=== PATIENT | female | born 1940 | race Caucasian/White ===

== ENCOUNTER 2023-02-13 04:29 | Inpatient (IN) | payer BC ==
[~2023-02-13] VITALS: Ht 162.6 cm; Wt 49.0 kg
[2023-02-13 04:30] VITALS: BP_SYST 136; PULSE 89; RESP 24; TEMP 98.3; O2SAT 93
[2023-02-13] MEDS ORDERED: iohexoL 350 mgI/mL, 100 ML INFUS..BTL IV ONE (04:53)
[2023-02-13] MEDS ORDERED: ASPIRIN 81 MG TAB.CHEW PO ONE (05:15)
[2023-02-13] MEDS ORDERED: ASPIRIN 300 MG/SUPP.RECT SUPP RC ONE ×2 (05:30→06:15)
[2023-02-13 05:32] LABS: PROTHROMBIN TIME 10.1 SECS (9.5-12.5)
[2023-02-13 05:34] LABS: ANION GAP 7 (5-15); CALCIUM 9.6 mg/dL (8.4-11.0); CARBON DIOXIDE 29 mmol/L (23-29); CHLORIDE 98 mmol/L (98-107); CREATININE 0.89 mg/dL (0.55-1.30); GLUCOSE 231 mg/dL (74-106); POTASSIUM 4.6 mmol/L (3.5-5.1); SODIUM SERUM 134 mmol/L (136-145); UREA NITROGEN, BLOOD 17 mg/dL (8-21)
[2023-02-13 05:38] LABS: BASOPHILS % (AUTO) 0.2 % (0.0-2.0); EOSINOPHILS # (AUTO) 0.3 K/uL (0.0-0.4); EOSINOPHILS % (AUTO) 5.7 % (0.0-4.0); HEMOGLOBIN 11.2 g/dL (12.0-16.0); LYMPHOCYTES # (AUTO) 1.9 K/uL (1.0-5.5); LYMPHOCYTES % (AUTO) 41.3 % (20.5-51.5); MEAN CORPUSCULAR HEMOGLOBIN 30 pg (27-31); MEAN CORPUSCULAR HGB CONC 33 % (32-36); MEAN CORPUSCULAR VOLUME 90 fL (79.0-98.0); MONOCYTES # (AUTO) 0.2 K/uL (0.0-1.0); MONOCYTES % (AUTO) 4.4 % (1.7-9.3); NEUTROPHILS # (AUTO) 2.3 K/uL (1.8-7.7); NEUTROPHILS % (AUTO) 48.4 % (40.0-70.0); PLATELET COUNT (AUTO) 208 K/uL (130-430); RED BLOOD CELL COUNT(AUTO) 3.78 MIL/uL (4.2-6.2); RED CELL DISTRIBUTION WIDTH 14.1 % (9.0-15.0); WHITE BLOOD COUNT (AUTO) 4.7 K/uL (4.8-10.8)
[2023-02-13 05:41] LABS: ALANINE AMINOTRANSFERASE 44 U/L (12-78); ALBUMIN 3.4 g/dL (3.4-4.8); ASPARTATE AMINOTRANSFERASE 28 U/L (10-37); CHOLESTEROL 175 mg/dL (<200); HDL CHOLESTEROL 70 mg/dL (>55); TOTAL BILIRUBIN 0.4 mg/dL (0.0-1.0); TOTAL PROTEIN, SERUM 6.2 g/dL (6.4-8.3); TRIGLYCERIDES 180 mg/dL (30-150)
[2023-02-13 05:58] LABS: BILIRUBIN,URINE NEGATIVE (NEGATIVE); BLOOD, URINE NEGATIVE (NEGATIVE); CLARITY/URINE CLEAR (CLEAR); COLOR,URINE YELLOW (YELLOW); GLUCOSE,URINE NEGATIVE (NEGATIVE); KETONES,URINE NEGATIVE (NEGATIVE); LEUKOCYTE ESTERASE ,URINE NEGATIVE (NEGATIVE); NITRITE, URINE NEGATIVE (NEGATIVE); PH,URINE 7.5 (5.0-8.0); PROTEIN URINE NEGATIVE (NEGATIVE); UROBILINOGEN,URINE 0.2 (0.2-1.0)
[2023-02-13 06:14] LABS: BENZODIAZEPINE, URINE POSITIVE (NEG <=150)
[2023-02-13 06:16] LABS: BARBITURATE, URINE NEGATIVE (NEG <=200); CANNABINOID, URINE NEGATIVE (NEG <=50); COCAINE, URINE NEGATIVE (NEG <=150); METHAMPHETAMINES SCREEN,URINE NEGATIVE (NEG <=500); OPIATE, URINE NEGATIVE (NEG <=100); PHENCYCLIDINE SCREEN,URINE NEGATIVE (NEG <=25); UR TRICYCLIC ANTIDEPRESSANTS NEGATIVE (NEG <=300); URINE AMPHETAMINE NEGATIVE (NEG <=500); URINE METHADONE NEGATIVE (NEG <=200); URINE OXYCODONE SCREEN NEGATIVE (NEG <=100); URINE PROPOXYPHENE SCREEN NEGATIVE (NEG <=300)
[2023-02-13 06:39] LABS: HEMOGLOBIN A1C 8.54 % (<5.7)
[2023-02-13] MEDS ORDERED: HYDROcodone/ACETAMIN 5-325 MG TAB (NORCO/ VICODIN) PO PRN (09:45)
[2023-02-13] MEDS ORDERED: ONDANSETRON HCL 4 MG/2 ML VIAL IVP PRN (09:45)
[2023-02-13] MEDS ORDERED: HYDROcodone/ACETAMIN 10-325 MG TAB PO PRN (09:45)
[2023-02-13] MEDS ORDERED: TRAZ-250 PO (10:30)
[2023-02-13] MEDS ORDERED: MIRT-92 PO (10:30)
[2023-02-13] MEDS ORDERED: LORA-258 PO (10:30)
[2023-02-13] MEDS ORDERED: METF-381 PO (11:04)
[2023-02-13] MEDS ORDERED: LORA-258 (11:04)
[2023-02-13] MEDS ORDERED: METF-379 PO (11:04)
[2023-02-13] MEDS ORDERED: ESCI20TA38 PO (11:04)
[2023-02-13] MEDS ORDERED: ATOR10TA68 PO (11:04)
[2023-02-13] MEDS ORDERED: LEVO137T2 PO ×2 (11:04→17:45)
[2023-02-13] MEDS ORDERED: GLIP10TA11 PO (11:04)
[2023-02-13] MEDS ORDERED: NEU300 PO (11:08)
[2023-02-13] MEDS ORDERED: HYDR-500 PO (11:11)
[2023-02-13] MEDS ORDERED: HYDR-3698 PO (11:15)
[2023-02-13 12:30] VITALS: BP_SYST 113; PULSE 87; RESP 18; TEMP 99; O2SAT 98
[2023-02-13 13:54] VITALS: BP_SYST 113; PULSE 87; RESP 16; TEMP 99
[2023-02-13] MEDS: NACL 0.9% 1,000 ML IV SCH ×2 (15:00→22:04)
[2023-02-13] MEDS ORDERED: DEXTROSE 50% JECT 50 ML DISP.SYRIN IVP PRN (15:15)
[2023-02-13] MEDS ORDERED: GLUCOSE (DEXTROSE) ORAL GEL -Adults PO PRN (15:15)
[2023-02-13] MEDS ORDERED: ATORVASTATIN 20 MG TABLET PO ONE (15:30)
[2023-02-13] MEDS ORDERED: ZOLPIDEM TARTRATE 5 MG TABLET PO PRN (15:45)
[2023-02-13 16:32] VITALS: BP_SYST 109; PULSE 94; RESP 16; TEMP 99; O2SAT 100
[2023-02-13] MEDS ORDERED: MECLIZINE HCL 25 MG TABLET (ANITVERT) PO ONE (16:45)
[2023-02-13 20:00] VITALS: BP_SYST 113; PULSE 79; RESP 18; TEMP 98.2; O2SAT 97
[2023-02-13] MEDS: AZITHROMYCIN 500 MG in NS 250 ML IV SCH (21:27)
[2023-02-13] MEDS: cefTRIAXone 1 GM in D5W 50 ML IV SCH (21:27)
[2023-02-13] MEDS: MECLIZINE HCL 25 MG TABLET (ANITVERT) PO SCH (21:40)
[2023-02-13] MEDS: HYDROcodone/ACETAMIN 5-325 MG TAB (NORCO/ VICODIN) PO PRN (21:42)
[2023-02-14 00:29] VITALS: BP_SYST 97; PULSE 74; RESP 17; TEMP 97.6; O2SAT 95
[2023-02-14] MEDS: LEVOTHYROXINE SODIUM 0.137 MG TABLET PO SCH (06:06)
[2023-02-14 07:28] LABS: BASOPHILS % (AUTO) 0.2 % (0.0-2.0); EOSINOPHILS # (AUTO) 0.2 K/uL (0.0-0.4); EOSINOPHILS % (AUTO) 2.9 % (0.0-4.0); HEMATOCRIT 30.4 % (36-48); HEMOGLOBIN 10.1 g/dL (12.0-16.0); LYMPHOCYTES # (AUTO) 1.4 K/uL (1.0-5.5); LYMPHOCYTES % (AUTO) 25.6 % (20.5-51.5); MEAN CORPUSCULAR HEMOGLOBIN 30 pg (27-31); MEAN CORPUSCULAR HGB CONC 33 % (32-36); MEAN CORPUSCULAR VOLUME 90 fL (79.0-98.0); MONOCYTES # (AUTO) 0.2 K/uL (0.0-1.0); MONOCYTES % (AUTO) 3.7 % (1.7-9.3); NEUTROPHILS # (AUTO) 3.7 K/uL (1.8-7.7); NEUTROPHILS % (AUTO) 67.6 % (40.0-70.0); PLATELET COUNT (AUTO) 217 K/uL (130-430); RED BLOOD CELL COUNT(AUTO) 3.38 MIL/uL (4.2-6.2); RED CELL DISTRIBUTION WIDTH 14.4 % (9.0-15.0); WHITE BLOOD COUNT (AUTO) 5.5 K/uL (4.8-10.8)
[2023-02-14 07:50] LABS: ANION GAP 6 (5-15); CALCIUM 8.5 mg/dL (8.4-11.0); CARBON DIOXIDE 26 mmol/L (23-29); CHLORIDE 100 mmol/L (98-107); CREATININE 0.75 mg/dL (0.55-1.30); GLUCOSE 184 mg/dL (74-106); POTASSIUM 4.2 mmol/L (3.5-5.1); SODIUM SERUM 132 mmol/L (136-145); UREA NITROGEN, BLOOD 11 mg/dL (8-21)
[2023-02-14 08:00] VITALS: BP_SYST 115; PULSE 78; RESP 18; TEMP 98.4; O2SAT 96; O2SAT 97
[2023-02-14] MEDS: ASPIRIN 81 MG TAB.CHEW PO SCH (08:47)
[2023-02-14] MEDS: ATORVASTATIN 20 MG TABLET PO SCH (08:47)
[2023-02-14] MEDS: MECLIZINE HCL 25 MG TABLET (ANITVERT) PO SCH ×3 (08:48→21:25)
[2023-02-14 11:35] VITALS: BP_SYST 132; PULSE 85; RESP 17; TEMP 98.2; O2SAT 97
[2023-02-14] MEDS: NACL 0.9% 1,000 ML IV SCH ×2 (14:21→21:28)
[2023-02-14 16:06] VITALS: BP_SYST 127; PULSE 74; RESP 18; TEMP 97.9; O2SAT 98
[2023-02-14 19:00] VITALS: BP_SYST 137; PULSE 75; RESP 16; TEMP 97.8; O2SAT 96
[2023-02-14 20:00] VITALS: BP_SYST 137; PULSE 75; RESP 16; TEMP 97.8; O2SAT 96
[2023-02-14] MEDS: AZITHROMYCIN 500 MG in NS 250 ML IV SCH (21:24)
[2023-02-14] MEDS: cefTRIAXone 1 GM in D5W 50 ML IV SCH (21:25)
[2023-02-14] MEDS: HYDROcodone/ACETAMIN 5-325 MG TAB (NORCO/ VICODIN) PO PRN (21:27)
[2023-02-15 00:39] VITALS: BP_SYST 122; PULSE 80; RESP 18; TEMP 97.8; O2SAT 93
[2023-02-15 05:15] LABS: BASOPHILS % (AUTO) 0.2 % (0.0-2.0); EOSINOPHILS # (AUTO) 0.2 K/uL (0.0-0.4); EOSINOPHILS % (AUTO) 3.5 % (0.0-4.0); HEMATOCRIT 30.8 % (36-48); HEMOGLOBIN 10.2 g/dL (12.0-16.0); LYMPHOCYTES # (AUTO) 1.4 K/uL (1.0-5.5); LYMPHOCYTES % (AUTO) 29.3 % (20.5-51.5); MEAN CORPUSCULAR HEMOGLOBIN 30 pg (27-31); MEAN CORPUSCULAR HGB CONC 33 % (32-36); MEAN CORPUSCULAR VOLUME 89 fL (79.0-98.0); MONOCYTES # (AUTO) 0.2 K/uL (0.0-1.0); MONOCYTES % (AUTO) 4.5 % (1.7-9.3); NEUTROPHILS % (AUTO) 62.5 % (40.0-70.0); PLATELET COUNT (AUTO) 211 K/uL (130-430); RED BLOOD CELL COUNT(AUTO) 3.47 MIL/uL (4.2-6.2); WHITE BLOOD COUNT (AUTO) 4.8 K/uL (4.8-10.8)
[2023-02-15 05:23] LABS: ANION GAP 10 (5-15); CALCIUM 8.6 mg/dL (8.4-11.0); CARBON DIOXIDE 24 mmol/L (23-29); CHLORIDE 101 mmol/L (98-107); CREATININE 0.76 mg/dL (0.55-1.30); GLUCOSE 132 mg/dL (74-106); POTASSIUM 3.8 mmol/L (3.5-5.1); SODIUM SERUM 135 mmol/L (136-145); UREA NITROGEN, BLOOD 11 mg/dL (8-21)
[2023-02-15] MEDS: LEVOTHYROXINE SODIUM 0.137 MG TABLET PO SCH (06:01)
[2023-02-15 08:00] VITALS: BP_SYST 121; PULSE 78; RESP 17; TEMP 97.2; O2SAT 97
[2023-02-15] MEDS: ATORVASTATIN 20 MG TABLET PO SCH (09:29)
[2023-02-15] MEDS: MECLIZINE HCL 25 MG TABLET (ANITVERT) PO SCH ×3 (09:30→20:32)
[2023-02-15] MEDS: ASPIRIN 81 MG TAB.CHEW PO SCH (09:30)
[2023-02-15 12:00] VITALS: BP_SYST 113; PULSE 78; RESP 19; TEMP 97.5; O2SAT 97
[2023-02-15 16:00] VITALS: BP_SYST 113; PULSE 80; RESP 16; TEMP 97.3; O2SAT 98
[2023-02-15] MEDS: NACL 0.9% 1,000 ML IV SCH (18:55)
[2023-02-15 20:19] VITALS: BP_SYST 126; PULSE 79; RESP 18; TEMP 99.4; O2SAT 99
[2023-02-15] MEDS: AZITHROMYCIN 500 MG in NS 250 ML IV SCH (20:36)
[2023-02-15] MEDS: cefTRIAXone 1 GM in D5W 50 ML IV SCH (21:42)
[2023-02-15 23:42] VITALS: O2SAT 99
[2023-02-16 00:46] VITALS: BP_SYST 115; PULSE 75; RESP 16; TEMP 98.9; O2SAT 98
[2023-02-16 05:04] LABS: BASOPHILS % (AUTO) 0.1 % (0.0-2.0); EOSINOPHILS # (AUTO) 0.1 K/uL (0.0-0.4); EOSINOPHILS % (AUTO) 2.1 % (0.0-4.0); HEMATOCRIT 30.4 % (36-48); HEMOGLOBIN 10.1 g/dL (12.0-16.0); LYMPHOCYTES # (AUTO) 1.6 K/uL (1.0-5.5); LYMPHOCYTES % (AUTO) 26.4 % (20.5-51.5); MEAN CORPUSCULAR HEMOGLOBIN 30 pg (27-31); MEAN CORPUSCULAR HGB CONC 33 % (32-36); MEAN CORPUSCULAR VOLUME 89 fL (79.0-98.0); MONOCYTES # (AUTO) 0.3 K/uL (0.0-1.0); MONOCYTES % (AUTO) 4.4 % (1.7-9.3); NEUTROPHILS # (AUTO) 4.1 K/uL (1.8-7.7); PLATELET COUNT (AUTO) 206 K/uL (130-430); RED BLOOD CELL COUNT(AUTO) 3.42 MIL/uL (4.2-6.2); RED CELL DISTRIBUTION WIDTH 14.2 % (9.0-15.0); WHITE BLOOD COUNT (AUTO) 6.1 K/uL (4.8-10.8)
[2023-02-16 05:14] LABS: ANION GAP 11 (5-15); CALCIUM 8.5 mg/dL (8.4-11.0); CARBON DIOXIDE 24 mmol/L (23-29); CHLORIDE 102 mmol/L (98-107); CREATININE 0.73 mg/dL (0.55-1.30); GLUCOSE 120 mg/dL (74-106); POTASSIUM 3.9 mmol/L (3.5-5.1); SODIUM SERUM 137 mmol/L (136-145); UREA NITROGEN, BLOOD 10 mg/dL (8-21)
[2023-02-16] MEDS: LEVOTHYROXINE SODIUM 0.137 MG TABLET PO SCH (06:20)
[2023-02-16] MEDS: INSULIN REGULAR, HUMAN 100 UNITS/ML, 3 ML VIAL (humuLIN R) SUBCUT PRN ×2 (06:23→18:03)
[2023-02-16 07:54] VITALS: BP_SYST 127; PULSE 87; RESP 18; TEMP 98.2; O2SAT 98
[2023-02-16 08:00] VITALS: O2SAT 98
[2023-02-16] MEDS: ASPIRIN 81 MG TAB.CHEW PO SCH (08:34)
[2023-02-16] MEDS: ATORVASTATIN 20 MG TABLET PO SCH (08:35)
[2023-02-16] MEDS: MECLIZINE HCL 25 MG TABLET (ANITVERT) PO SCH ×2 (08:35→15:27)
[2023-02-16] MEDS: NACL 0.9% 1,000 ML IV SCH (09:15)
[2023-02-16 16:01] VITALS: BP_SYST 124; PULSE 83; RESP 18; TEMP 97.5; O2SAT 98
[2023-02-16 17:30] VITALS: BP_SYST 102; PULSE 82; RESP 17; TEMP 98.4; O2SAT 95
== END 2023-02-16 19:40 | DRG 193 ==
LOC: SED 04:29 → STU 09:32 → SMU 02-16 13:57
PROVIDERS: ADMIT Family Medicine; ATTEND Family Medicine
DX: J18.9 Pneumonia, unspecified organism (principal); G93.41 Metabolic encephalopathy; G45.9 Transient cerebral ischemic attack, unspecified; J44.0 Chronic obstructive pulmonary disease with (acute) lower respiratory infection; I10 Essential (primary) hypertension; E11.9 Type 2 diabetes mellitus without complications; E03.9 Hypothyroidism, unspecified; E78.5 Hyperlipidemia, unspecified; G25.2 Other specified forms of tremor; G47.00 Insomnia, unspecified; Z85.118 Personal history of other malignant neoplasm of bronchus and lung
CPT/HCPCS: 36415; 70450-TC; 70496; 70498; 71045; 76376; 80048; 80053; 80061; 80307; 81003; 82962; 83037; 84443; 84484; 85025; 85610-TC; 85730-TC; 86886; 86900; 86901; 92610-GN; 93306; 97110-GP; 97163-GP; 97530-GP; 99285; G0378; J0456; J0696; J7050; J7060; J8597; Q9967